=== PATIENT | female | born 2000 | race Caucasian/White ===

== ENCOUNTER 2024-02-29 13:45 | Emergency (ER) | payer OTHER ==
[2024-02-29] MEDS ORDERED: Dexamethasone 4 mg/ml Vial ONE (14:22)
[2024-02-29] MEDS ORDERED: Mag-Al Plus 1200/1200/120 MG (30 mL) UDCUP ONE ×2 (14:32→14:35)
[2024-02-29] MEDS ORDERED: Lidocaine 2% Viscous 100 ML BOTTLE ONE (14:32)
== END 2024-02-29 14:55 | disposition home or self-care (01) ==
LOC: NAV ERS 13:45
DX: J20.9 Acute bronchitis, unspecified (principal); J02.9 Acute pharyngitis, unspecified
CPT/HCPCS: 71046; 87081; 87430; 96372; J1100